=== PATIENT | female | born 1930 | race Caucasian/White ===

== ENCOUNTER → 2017-02-05 | Day surgery (SDC) | payer OTHER ==
[2017-01-30 12:36] VITALS: Ht 165.1 cm; Wt 60.9 kg
[~2017-02-05] VITALS: Ht 165.1 cm; Wt 60.9 kg
[~2017-02-05] MED LIST: 500ML BSS 0.3ML EPI 1:1000PF IRRIG ONE; ACETAMINOPHEN 325 MG TAB PO PRN; AMVISC PLUS 0.8ML SYRINGE INT OCU ONE; ASPI325T39 PO; ATOR-22 PO; ATROPINE SULFATE 0.1 MG/ML 5ML SYR IV PRN; ATV/1 PO; AcetaZOLAMIDE 250 MG TAB PO SCH; BETAXOLOL HCL 0.25% OP SUSP PER DROP CHARGE OPR SCH; BRIMONIDINE TART 0.2% OP SOLN PER DROP CHARGE ONE; BROM0.07 OPR; BSS FLUSH ONE; BUPR100T8 PO; CALC500C70 PO; CHOL100010 PO; DICY10CA55 PO; DOCU-94 PO; ENDOCOAT 0.85ML SYRINGE INT OCU ONE; EpINEphrine INJ 1MG/ML AMP 1 MG/ML AMP ONE; FLUO20CA20 PO; HYDR-5688 PO; LACTATED RINGER'S 1000ML 500 ML IV SCH; LEVO75TA5 PO; LIDOCAINE 4% OP SOLN DROP CHARGE ONE; LIDOCAINE 4% OP SOLN DROP CHARGE OPR SCH; LIDOCAINE HCL 1% MPF 2 ML VIAL ONE; LORA1TAB13 PO; MIDAZOLAM HCL 1 MG/ML 2ML VIAL ONE; MIX: 4ML BSS 1ML EPI 1:1000 PF INSTIL ONE; MOXIFLOXACIN OPH SOLN PER DROP CHARGE ONE; OCUCOAT 1 ML SOLN IO ONE; POVIDONE-IODINE OP SOLN 30 ML BTL ONE; PRED1SUS3 OPR; PRLSR20 PO; PROPARACAINE 0.5% OP SOLN PER DROP CHARGE OPR SCH; TOBRAMYCIN/DEXAMETHASONE OPH OINT PER APPLN CHARGE ONE
--- NOTE | 2017-02-05 09:00 | History & Physical Bridge - [place] ---
H&P Re-Evaluation Bridge Note: I have examined the patient, reviewed the History & Physical and in the interval since the performance of the History & Physical I have noted the following changes of clinical significance: No changes noted
[2017-02-05] MEDS: PHENYLEPHRINE HCL 2.5% OP SOLN PER DROP CHARGE OPR SCH ×2 (09:50→09:55)
[2017-02-05] MEDS: TROPICAMIDE 1% OP SOLN PER DROP CHARGE OPR SCH ×2 (09:51→09:56)
[2017-02-05] MEDS: CYCLOPENTOLATE HCL 1% OP SOLN PER DROP CHARGE OPR SCH ×2 (09:52→09:57)
[2017-02-05] MEDS: MOXIFLOXACIN OPH SOLN PER DROP CHARGE OPR SCH ×2 (09:53→10:03)
--- NOTE | 2017-02-05 10:26 | Discharge Instructions-SurgCtr ---
Discharge Instructions Date of Service February 05, 2017. Visit Reason for Visit: Cataract Right Eye Discharge Discharge Diagnosis / Problem: lens implant right eye Discharge Goals Goal(s): Improve function Activity Recommendations Activity Limitations: resume your previous activity Lifting Limitations: no more than 10 pounds Exercise/Sports Limitations: gradually increase as tolerated May Resume Sexual Activity: when tolerated Shower/Bathe: tomorrow Driving or Machine Use: resume 1 day after discharge Anesthesia . Post Anesthesia Instructions: If you have had General Anesthesia or IV Sedation: * Do not drive today. * Resume driving when surgeon permits. * Do not make important decisions or sign legal documents today. * Call surgeon for: 1. Temperature elevations greater than 101 degrees F. 2. Uncontrollable pain. 3. Excessive bleeding. 4. Persistent nausea and vomiting. 5. Medication intolerance (nausea, vomiting or rash). * For nausea and vomiting use only clear liquids such as: tea, soda, bouillon until nausea subsides, then gradually increase diet as tolerated. * If you have any concerns or questions, call your surgeon's office. If physician is unavailable and it is an emergency, call 911 or go to the nearest emergency room. . Instructions / Follow-Up Instructions / Follow-Up ACTIVITY RECOMMENDATIONS: * Light activities. * Mild irritation and blurred vision are common for the first few days. * You may walk outside, read, watch television. * Redness around the white part of the eye is common. MEDICATIONS: Resume previous medications unless instructed otherwise by your surgeon. * Take white Diamox (Acetazolamide) tablet at 1 pm today. Start all eye drops at 1 pm today: * Eye drops (today and tomorrow): Prednisone - one drop in operative eye every 3 hours while awake Ofloxacin - one drop in operative eye every 3 hours while awake SPECIAL CARE INSTRUCTIONS: * Tape plastic shield over eye to sleep at night. Call your doctor at with any concerns or problems. FOLLOW UP VISIT: Follow-up with Dr Mccormick at [place] office as scheduled. Diet Recommendations Home Diet: no limitations Procedures Procedures Performed: cataract extraction with lens implant Pending Studies Studies pending at discharge: no Medical Emergencies . Who to Call and When: Medical Emergencies: If at any time you feel your situation is an emergency, please call 911 immediately. . Non-Emergent Contact Non-Emergency issues call your: Director Call Non-Emergent contact if: your pain is not controlled [phone] . . "Provider Documentation" section prepared by Zana Mccormick. .
--- NOTE | 2017-02-05 10:29 | [facility] Operative Report ---
Operative Report Date of Service February 05, 2017. Operative Report 1. PREOPERATIVE DIAGNOSIS: Senile cortical cataract, right eye. 2. POSTOPERATIVE DIAGNOSIS: Senile cortical cataract, right eye. 3. PROCEDURE: Phacoemulsification of right cataract with posterior chamber lens implant, type [employer], model MX60, power +23.0 diopters. ANESTHESIA: Local standby. SURGEON: Dr. Mccormick. COMPLICATIONS: None. OPERATING TIME: 10 minutes. 4. OPERATION AND FINDINGS: DESCRIPTION OF PROCEDURE: The right pupil was dilated. The anesthetic was administered using a topical technique. The right eye was prepped and draped. A speculum was placed. A clear corneal incision was formed. The chamber was filled with Amvisc Plus and Endocoat. Epinephrine solution was used. A paracentesis was placed. A capsulorrhexis was performed. The nucleus was hydrodissected. The lens was removed with phacoemulsification. Time was 4.05 seconds. The aspiration unit was used to remove the cortex. The capsule was filled with Amvisc Plus. The lens implant was folded and placed into the capsule. The incision was hydrated. The Amvisc was aspirated. The wound was secure. The chamber was deep. The pupil was round. Brimonidine, TobraDex ointment and Vigamox solution were placed. The speculum was removed. The patient was returned to the Recovery Room in stable condition. I attest to the content of the Intraoperative Record and any orders documented therein. Any exceptions are noted below. The scribe's documentation has been prepared in my presence, under my direction and personally reviewed by me in its entirety. I confirm that the note above accurately reflects all work, treatment, procedures, and medical decision making performed by me. I personally scribed for Zana Mccormick M.D. ([email or web address]) on 02/05/17 at 10:29. Electronically submitted by Ruthie Birch ([email or web address]).
[2017-02-05 10:31] VITALS: TEMP 36
[2017-02-05 10:49] VITALS: BP 104/70; PULSE 74; O2SAT 97
--- NOTE | 2017-02-05 10:54 | Anesthesia Progress Nt - [facility] ---
Anesthesia Post Op Note Date & Time February 05, 2017 at 10:55 Vital Signs Vital Signs Past 12 Hours Date Time Temp Pulse Resp B/P Pulse Ox O2 Delivery O2 Flow Rate FiO2 02/05/17 10:49 74 16 104/70 97 Room Air 02/05/17 10:31 36.0 75 20 120/77 97 Room Air 02/05/17 09:51 36.6 76 16 125/80 98 Room Air Notes Mental Status: alert / awake / arousable, participated in evaluation Pt Amnestic to Procedure: Yes Nausea / Vomiting: adequately controlled Pain: adequately controlled Airway Patency, RR, SpO2: stable & adequate BP & HR: stable & adequate Hydration State: stable & adequate Anesthetic Complications: no major complications apparent
== END | disposition home or self-care (01) ==
LOC: X.SURG 09:34
PROVIDERS: ATTEND Specialist
DX: H25.11 Age-related nuclear cataract, right eye (principal); E03.9 Hypothyroidism, unspecified; Z79.899 Other long term (current) drug therapy

== ENCOUNTER → 2017-02-26 | Day surgery (SDC) | payer OTHER ==
[2017-02-13 15:43] VITALS: Ht 165.1 cm; Wt 60.9 kg
[~2017-02-26] VITALS: Ht 165.1 cm; Wt 60.9 kg
[~2017-02-26] MED LIST changes: +BETAXOLOL HCL 0.25% OP SUSP PER DROP CHARGE OPL SCH; -BETAXOLOL HCL 0.25% OP SUSP PER DROP CHARGE OPR SCH; +EpHEDrine SULFATE INJ 50 MG/ML AMP IV PRN; +LIDOCAINE 4% OP SOLN DROP CHARGE OPL SCH; -LIDOCAINE 4% OP SOLN DROP CHARGE OPR SCH; +PROPARACAINE 0.5% OP SOLN PER DROP CHARGE OPL SCH; -PROPARACAINE 0.5% OP SOLN PER DROP CHARGE OPR SCH
[2017-02-26] MEDS: PHENYLEPHRINE HCL 2.5% OP SOLN PER DROP CHARGE OPL SCH ×2 (07:42→07:47)
[2017-02-26] MEDS: TROPICAMIDE 1% OP SOLN PER DROP CHARGE OPL SCH ×2 (07:43→07:48)
[2017-02-26] MEDS: CYCLOPENTOLATE HCL 1% OP SOLN PER DROP CHARGE OPL SCH ×2 (07:44→07:49)
[2017-02-26] MEDS: MOXIFLOXACIN OPH SOLN PER DROP CHARGE OPL SCH ×2 (07:45→07:55)
--- NOTE | 2017-02-26 08:34 | Discharge Instructions-SurgCtr ---
Discharge Instructions Date of Service Feb 26, 2017. Visit Reason for Visit: Left Cataract Discharge Discharge Diagnosis / Problem: lens implant left eye Discharge Goals Goal(s): Improve function Activity Recommendations Activity Limitations: resume your previous activity Lifting Limitations: no more than 10 pounds Exercise/Sports Limitations: gradually increase as tolerated May Resume Sexual Activity: when tolerated Shower/Bathe: tomorrow Driving or Machine Use: resume 1 day after discharge Anesthesia . Post Anesthesia Instructions: If you have had General Anesthesia or IV Sedation: * Do not drive today. * Resume driving when surgeon permits. * Do not make important decisions or sign legal documents today. * Call surgeon for: 1. Temperature elevations greater than 101 degrees F. 2. Uncontrollable pain. 3. Excessive bleeding. 4. Persistent nausea and vomiting. 5. Medication intolerance (nausea, vomiting or rash). * For nausea and vomiting use only clear liquids such as: tea, soda, bouillon until nausea subsides, then gradually increase diet as tolerated. * If you have any concerns or questions, call your surgeon's office. If physician is unavailable and it is an emergency, call 911 or go to the nearest emergency room. . Instructions / Follow-Up Instructions / Follow-Up ACTIVITY RECOMMENDATIONS: * Light activities. * Mild irritation and blurred vision are common for the first few days. * You may walk outside, read, watch television. * Redness around the white part of the eye is common. MEDICATIONS: Resume previous medications unless instructed otherwise by your surgeon. * Take white Diamox (Acetazolamide) tablet at 1 pm today. Start all eye drops at 1 pm today: * Eye drops (today and tomorrow): Prednisone - one drop in operative eye every 3 hours while awake Ofloxacin - one drop in operative eye every 3 hours while awake SPECIAL CARE INSTRUCTIONS: * Tape plastic shield over eye to sleep at night. Call your doctor at with any concerns or problems. FOLLOW UP VISIT: Follow-up with Dr Mccormick at [place] office as scheduled. Diet Recommendations Home Diet: no limitations Procedures Procedures Performed: Left Cataract Phacoemulsification With Intraocular Lens Implant Pending Studies Studies pending at discharge: no Medical Emergencies . Who to Call and When: Medical Emergencies: If at any time you feel your situation is an emergency, please call 911 immediately. . Non-Emergent Contact Non-Emergency issues call your: Napper Runner Call Non-Emergent contact if: your pain is not controlled [phone] . . "Provider Documentation" section prepared by Zana Mccormick. .
[2017-02-26 08:37] VITALS: TEMP 36.7
--- NOTE | 2017-02-26 08:37 | [facility] Operative Report ---
Operative Report Date of Service Feb 26, 2017. Operative Report 1. PREOPERATIVE DIAGNOSIS: Senile cortical cataract, left eye. 2. POSTOPERATIVE DIAGNOSIS: Senile cortical cataract, left eye. 3. PROCEDURE: Phacoemulsification of left cataract with posterior chamber lens implant, type [employer]ch [employer] Lomb, model MX60, power +23.5 diopters. ANESTHESIA: Local standby. SURGEON: Dr. Mccormick. COMPLICATIONS: None. OPERATING TIME: 10 minutes. 4. OPERATION AND FINDINGS: DESCRIPTION OF PROCEDURE: The left pupil was dilated. The anesthetic was administered using a topical technique. The left eye was prepped and draped. A speculum was placed. A clear corneal incision was formed. The chamber was filled with Amvisc Plus and Endocoat. Epinephrine solution was used. A paracentesis was placed. A capsulorrhexis was performed. The nucleus was hydrodissected. The lens was removed with phacoemulsification. Time was 4.06 seconds. The aspiration unit was used to remove the cortex. The capsule was filled with Amvisc Plus. The lens implant was folded and placed into the capsule. The incision was hydrated. The Amvisc was aspirated. The wound was secure. The chamber was deep. The pupil was round. Brimonidine, TobraDex ointment and Vigamox solution were placed. The speculum was removed. The patient was returned to the Recovery Room in stable condition. I attest to the content of the Intraoperative Record and any orders documented therein. Any exceptions are noted below. The scribe's documentation has been prepared in my presence, under my direction and personally reviewed by me in its entirety. I confirm that the note above accurately reflects all work, treatment, procedures, and medical decision making performed by me. I personally scribed for Zana Mccormick M.D. ([email or web address]) on 02/26/17 at 08:37. Electronically submitted by Ruthie Birch ([email or web address]).
[2017-02-26 09:00] VITALS: BP 99/64; PULSE 72; O2SAT 96
--- NOTE | 2017-02-26 09:03 | Anesthesia Progress Nt - [facility] ---
Anesthesia Post Op Note Date & Time Feb 26, 2017 at 09:03 Vital Signs Pain Intensity: 0 Vital Signs Past 12 Hours Date Time Temp Pulse Resp B/P (MAP) Pulse Ox O2 Delivery O2 Flow Rate FiO2 02/26/17 09:00 72 16 99/64 (76) 96 Room Air 02/26/17 08:37 36.7 70 16 102/66 (78) 97 Room Air 02/26/17 07:31 36.5 84 16 99/59 (72) 96 Room Air Notes Mental Status: alert / awake / arousable, participated in evaluation Pt Amnestic to Procedure: Yes Nausea / Vomiting: adequately controlled Pain: adequately controlled Airway Patency, RR, SpO2: stable & adequate BP & HR: stable & adequate Hydration State: stable & adequate Anesthetic Complications: no major complications apparent
== END | disposition home or self-care (01) ==
LOC: X.SURG 07:18
PROVIDERS: ATTEND Specialist
DX: H25.012 Cortical age-related cataract, left eye (principal); Z79.899 Other long term (current) drug therapy; Z79.82 Long term (current) use of aspirin

== ENCOUNTER 2018-04-28 14:37 | Emergency (ER) | payer OTHER ==
[~2018-04-28] VITALS: Ht 165.1 cm; Wt 62.8 kg
[~2018-04-28 14:37] MED LIST changes: -500ML BSS 0.3ML EPI 1:1000PF IRRIG ONE; -ACETAMINOPHEN 325 MG TAB PO PRN; -AMVISC PLUS 0.8ML SYRINGE INT OCU ONE; -ATROPINE SULFATE 0.1 MG/ML 5ML SYR IV PRN; -AcetaZOLAMIDE 250 MG TAB PO SCH; -BETAXOLOL HCL 0.25% OP SUSP PER DROP CHARGE OPL SCH; -BRIMONIDINE TART 0.2% OP SOLN PER DROP CHARGE ONE; -BSS FLUSH ONE; -ENDOCOAT 0.85ML SYRINGE INT OCU ONE; -EpHEDrine SULFATE INJ 50 MG/ML AMP IV PRN; -EpINEphrine INJ 1MG/ML AMP 1 MG/ML AMP ONE; -HYDR-5688 PO; -LACTATED RINGER'S 1000ML 500 ML IV SCH; -LIDOCAINE 4% OP SOLN DROP CHARGE ONE; -LIDOCAINE 4% OP SOLN DROP CHARGE OPL SCH; -LIDOCAINE HCL 1% MPF 2 ML VIAL ONE; -MIDAZOLAM HCL 1 MG/ML 2ML VIAL ONE; -MIX: 4ML BSS 1ML EPI 1:1000 PF INSTIL ONE; -MOXIFLOXACIN OPH SOLN PER DROP CHARGE ONE; -OCUCOAT 1 ML SOLN IO ONE; -POVIDONE-IODINE OP SOLN 30 ML BTL ONE; -PROPARACAINE 0.5% OP SOLN PER DROP CHARGE OPL SCH; -TOBRAMYCIN/DEXAMETHASONE OPH OINT PER APPLN CHARGE ONE
[2018-04-28 14:44] VITALS: TEMP 36.7; Ht 165.1 cm; Wt 62.8 kg
[2018-04-28] MEDS ORDERED: SODIUM CHLORIDE 0.9% 1000ML 1,000 ML IV STA (14:53)
[2018-04-28 15:09] LABS: BASO % 0.5 %; BASO ABS # 0.04 K/uL (0-0.2); EOS ABS # 0.25 K/uL (0-0.5); HEMATOCRIT 42.8 % (37-47); HEMOGLOBIN 13.9 g/dL (12.0-16.0); IG# 0.01 K/uL (0.00-0.02); LYMPH % 28.8 %; LYMPH ABS # 2.43 K/uL (1.2-3.4); MEAN CELL VOLUME 95.5 fL (80-100); MEAN CORPUSCULAR HGB CONC 32.5 g/dl (32-36); MEAN PLATELET VOLUME 11.4 fL (7.4-10.4); MONO % 5.1 %; MONO ABS # 0.43 K/uL (0.11-0.59); NEUT % 62.5 %; NEUT ABS # 5.29 K/uL (1.4-6.5); PLATELET COUNT 234 K/uL (130-400); RED CELL DISTRIBUTION WIDTH CV 13.3 % (11.5-14.5); RED CELL DISTRIBUTION WIDTH SD 46.1 fL (36.4-46.3); WHITE BLOOD COUNT 8.45 K/uL (4.8-10.8)
--- NOTE | 2018-04-28 15:11 | DIAGNOSTIC IMAGING REPORT ---
SINGLE VIEW CHEST CLINICAL HISTORY: Weakness. Change in mental status. FINDINGS: An AP, portable, upright chest radiograph is compared to study dated 03/14/2016. Correlation is a with chest CT dated 05/19/2015. The examination is degraded by portable technique and patient rotation. The heart is enlarged. The pulmonary vasculature is noncongested. Chronic interstitial thickening is unchanged. No airspace consolidation or large pleural effusion is identified. No pneumothorax is seen. The skeletal structures are osteopenic. There is advanced degenerative change and scoliosis noted in the thoracic spine. Fusion hardware is seen in the lower cervical spine. Fusion hardware is also seen at the thoracolumbar junction. Calcific tendinopathy is seen in the right shoulder. IMPRESSION: Cardiomegaly with no acute cardiopulmonary abnormality. Electronically signed by: Tera Spain M.D. 04/28/2018 3:09 PM Dictated Date/Time: 04/28/2018 3:08 PM
[2018-04-28 15:24] LABS: PTT PATIENT 25.2 SECONDS (21.0-31.0)
[2018-04-28 15:36] LABS: ALBUMIN 3.4 gm/dl (3.4-5.0); ALKALINE PHOSPHATASE 72 U/L (45-117); ALT/SGPT 18 U/L (12-78); AST/SGOT 22 U/L (15-37); BLOOD UREA NITROGEN 19 mg/dl (7-18); CALCIUM 8.7 mg/dl (8.5-10.1); CARBON DIOXIDE 23 mmol/L (21-32); CKMB 1.7 ng/ml (0.5-3.6); CREATININE 1.28 mg/dl (0.60-1.20); GLUCOSE 109 mg/dl (70-99); LIPASE 283 U/L (73-393); POTASSIUM 4.3 mmol/L (3.5-5.1); SODIUM 137 mmol/L (136-145); TOTAL PROTEIN 7.4 gm/dl (6.4-8.2)
[2018-04-28] MEDS ORDERED: TRMCR130WC TOP (15:38)
[2018-04-28] MEDS ORDERED: CHOL100027 PO (15:38)
[2018-04-28] MEDS ORDERED: ONDA4TAB46 PO (15:38)
[2018-04-28] MEDS ORDERED: DOCU-94 PO (15:38)
[2018-04-28] MEDS ORDERED: ATV/1 PO (15:39)
--- NOTE | 2018-04-28 15:44 | DIAGNOSTIC IMAGING REPORT ---
CT SCAN OF THE BRAIN WITHOUT IV CONTRAST CLINICAL HISTORY: Change in mental status. Weakness. COMPARISON STUDY: CT of the brain dated 06/20/2008. TECHNIQUE: Unenhanced axial CT scan of the brain is performed from the vertex to the skull base. A dose lowering technique was utilized adhering to the principles of ALARA. The examination is degraded by motion artifact. CT DOSE: 638.56 mGycm FINDINGS: Brain parenchyma: There are age-related involutional changes noting mild to moderate subcortical and periventricular microangiopathic change. There is no hemorrhage, mass effect, or evidence of acute territorial ischemia by CT criteria. Deluca-white matter is preserved. No extra-axial fluid collection is seen. Ventricles, sulci, cisterns: Prominent secondary to involutional change. Intracranial vasculature: There is atherosclerotic calcification of the cavernous carotid and vertebral arteries. Calvarium: The skeletal structures are osteopenic. There is no depressed calvarial fracture. Soft tissues: There is a left posterior frontal scalp hematoma. Sinuses and mastoids: The visualized paranasal sinuses are clear. The mastoid air cells are well pneumatized. Orbits: The bony orbits are grossly intact. There are bilateral ocular lens implants. IMPRESSION: 1. There is no hemorrhage, mass effect, or evidence of acute territorial ischemia by CT criteria. 2. Left posterior parietal scalp hematoma. No depressed calvarial fracture is seen Electronically signed by: Tera Spain M.D. 04/28/2018 3:43 PM Dictated Date/Time: 04/28/2018 3:40 PM
--- NOTE | 2018-04-28 15:52 | DIAGNOSTIC IMAGING REPORT ---
CT SCAN OF THE CERVICAL SPINE CLINICAL HISTORY: Fall. COMPARISON STUDY: MRI of the cervical spine dated 12/25/2005. TECHNIQUE: CT scan of the cervical spine is performed from the skull base to the upper thoracic spine. Images are reviewed in the axial, sagittal, and coronal planes. IV contrast was not administered for this examination. A dose lowering technique was utilized adhering to the principles of ALARA. CT DOSE: 390.11 mGycm FINDINGS: Skeletal structures: The skeletal structures are osteopenic. There is no evidence of fracture or subluxation involving the cervical spine. Vertebral body height and alignment are maintained. There are postoperative changes from anterior fusion seen from C3 -C6 with near complete bony incorporation at these levels. There is straightening of the cervical lordosis. The odontoid process and lateral masses are intact. The atlantoaxial articulation is preserved noting productive degenerative change and calcification of the posterior longitudinal ligament. The spinous processes appear intact. There is moderate multilevel spondylosis. Uncovertebral and facet arthropathy contribute to neural foraminal stenosis at most levels. Intervertebral discs: There is been discectomy at C3-C4, C4-C5, C5-C6. Moderate disc space narrowing is seen at C6-C7. Central canal: Posterior disc osteophyte complexes at C3-C4 and C6-C7 may contribute to mild acquired compromise of the central canal. Soft tissues: The prevertebral and paraspinous soft tissues are within normal limits. The thyroid gland is atrophic. Calvarium: The visualized calvarium at the skull base appears intact. Brain parenchyma: Partially visualized brain parenchyma the skull base is within normal limits noting age-related involutional change. Sinuses and mastoids: The visualized paranasal sinuses are clear. There is a trace right mastoid effusion. The left mastoid air cells are well pneumatized. Lung apices: Clear as visualized. IMPRESSION: 1. There is no evidence of fracture or subluxation involving the cervical spine. 2. Osteopenia with spondylotic and postoperative change as above. Electronically signed by: Tera Spain M.D. 04/28/2018 3:50 PM Dictated Date/Time: 04/28/2018 3:43 PM
--- NOTE | 2018-04-28 15:59 | DIAGNOSTIC IMAGING REPORT ---
CT SCAN OF THE ABDOMEN AND PELVIS WITHOUT IV CONTRAST CLINICAL HISTORY: Generalized abdominal pain. Fall. COMPARISON STUDY: Abdominal CT dated 10/13/2012. TECHNIQUE: CT scan of the abdomen and pelvis is performed from the lung bases to the proximal femora. Images are reviewed in the axial, sagittal, and coronal planes. IV contrast was not administered for this examination. Note that the examination was performed and significant suboptimal fashion without oral and IV contrast. The examination is also degraded by streak artifact from extensive thoracolumbar spinal fusion hardware. A dose lowering technique was utilized adhering to the principles of ALARA. CT DOSE: 396.15 mGycm FINDINGS: Lung bases: The heart is normal in size and without pericardial effusion. There is a small fat-containing Bochdalek hernia at the right lung base. Mild bibasilar scarring/atelectasis is observed. No airspace consolidation or pleural effusion is seen. There is a tiny hiatal hernia. Liver: The unenhanced liver is normal in size, contour, and attenuation. There is mild central intrahepatic biliary ductal dilatation. Gallbladder: Surgically absent noting clips in the gallbladder fossa. Spleen: Normal in size and attenuation. Pancreas: The unenhanced pancreas is atrophic and grossly unremarkable. Adrenal glands: Unremarkable. Kidneys: The unenhanced kidneys are atrophic and without hydronephrosis. There are no renal calculi identified. There is no evidence of contour deforming renal mass lesion. Abdominal vasculature: The abdominal aorta is normal in course and caliber noting moderate to advanced atherosclerotic calcification. Bowel: No bowel obstruction is seen. The appendix is not identified Peritoneum: There is no intraperitoneal free air or abdominal ascites. There is a small fat-containing umbilical hernia. Lymphadenopathy: None. Pelvic viscera: The bladder is decompressed and grossly unremarkable. The uterus is surgically absent. No adnexal lesion is seen. Skeletal structures: The skeletal structures are osteopenic. Thoracolumbar spinal fusion hardware is seen from T11 -S1. There is lucency around the right ventricular screw at S1 suggesting loosening. No lytic or blastic lesions are seen. IMPRESSION: 1. Suboptimal examination without oral and IV contrast. 2. There is no evidence of solid organ injury in the abdomen or pelvis. 3. There are no acute infectious or inflammatory findings in the abdomen or pelvis. 4. There is lucency around the right interpedicular screw at S1 suggesting loosening. 5. Additional findings as above. Electronically signed by: Tera Spain M.D. 04/28/2018 3:57 PM Dictated Date/Time: 04/28/2018 3:50 PM
--- NOTE | 2018-04-28 16:25 | EMERGENCY ROOM VISIT NOTE ---
History Report prepared by Yoselin: Jackelin Cage Under the Supervision of: Dr. Sherif Torres D.O. First contact with patient: 14:31 Chief Complaint: SYNCOPE Stated Complaint: SYNCOPE History of Present Illness The patient is an 87 year old female who presents to the Emergency Room with complaints of a sudden syncopal episode occurring shortly prior to arrival. Per nursing staff, the patient was at the hearing aid center, had a syncopal episode , and now has a laceration on the back of her head. Per nursing staff the patient has had dizziness and abdominal pain over the last several days. The patient states that she has been eating and drinking okay. She describes her abdominal pain as being sharp and states that she has not been doing anything unusual. She states that her abdominal pain also radiates into her back. She reports having 2 normal bowel movements today. She reports having chronic neck pain. The patient states that she lives by herself. The patient reports a history of a cholecystectomy and 2 C-sections. Source of History: patient, nursing staff Onset: shortly prior to arrival Position: other (generalized) Quality: other (syncope) Timing: other (sudden) Associated Symptoms: + abdominal pain, + back pain, + weakness (dizziness) Review of Systems See HPI for pertinent positives & negatives. A total of 10 systems reviewed and were otherwise negative. Past Medical & Surgical Medical Problems: (1) Anxiety (2) CVA (cerebral vascular accident) (3) Depression (4) Dyslipidemia (5) Esophageal dysmotility (6) GERD (gastroesophageal reflux disease) (7) Hypothyroidism (8) Osteoarthritis (9) RLS (restless legs syndrome) Surgical Problems: (1) H/O cervical spine surgery (2) H/O: hysterectomy (3) History of appendectomy (4) History of lumbar surgery (5) S/P BSO (bilateral salpingo-oophorectomy) (6) S/P cholecystectomy (7) S/P tonsillectomy and adenoidectomy Family History Cancer Heart disease Social History Smoking Status: Never Smoker Alcohol Use: none Drug Use: none Marital Status: Housing Status: unknown Occupation Status: retired Current/Historical Medications Scheduled Aspirin (Aspirin Ec), 325 MG PO QAM Atorvastatin (Lipitor), 20 MG PO QAM Calcium/Vitamin D (Os-Roderick 500 Plus D), 1 TAB PO QAM Cholecalciferol (Vitamin D 1000 Unit), 1,000 INTER.UNIT PO DAILY Fluoxetine Hcl (Pmdd) (Fluoxetine), 20 MG PO QAM Levothyroxine Sodium (Levothyroxine Sodium), 75 MCG PO QAM Lorazepam (Ativan), 1.5 MG PO HS Scheduled PRN Dicyclomine Hcl (Bentyl), 10 MG PO QID PRN for Pain Docusate Sodium (Colace), 1 CAP PO BID PRN for Constipation Hydrocodone/Acetaminophen 5MG/325MG ([place] 5MG/325MG), 1 TABLET PO Q4H PRN for Pain Lorazepam (Ativan), 1 MG PO DAILY PRN for Anxiety Omeprazole (Prilosec), 20 MG PO QAM PRN for ACID REFLUX Ondansetron Hcl (Zofran), 4 MG PO Q8 PRN for Nausea Triamcinolone Acet (Aristocort 0.1%), 1 APPLN TOP BID PRN for BREAKOUTS Allergies Coded Allergies: Citalopram (Verified Allergy, Unknown, RASH, 02/26/17) Escitalopram (Verified Allergy, Unknown, RASH, 02/26/17) Alendronate (Verified Adverse Reaction, Severe, BACK PAIN, 04/28/18) Physical Exam Vital Signs Date Time Temp Pulse Resp B/P (MAP) Pulse Ox O2 Delivery O2 Flow Rate FiO2 04/28/18 16:32 79 18 116/63 95 Room Air 04/28/18 15:00 81 20 123/74 94 Room Air 77 130/72 78 121/68 04/28/18 14:49 74 04/28/18 14:44 36.7 78 20 140/82 98 Room Air Physical Exam CONSTITUTIONAL/VITAL SIGNS: Reviewed / noted above. GENERAL: Non-toxic in appearance. INTEGUMENTARY: Warm, dry, and [place]. HEAD: Normocephalic. 1-2 cm well proximated laceration to the left upper occipital area. EYES: without scleral icterus or trauma. ENT/OROPHARYNX: clear and moist. LYMPHADENOPATHY/NECK: Is supple without lymphadenopathy or meningismus. Mild tenderness to the cervical spine. RESPIRATORY: Lungs clear and equal. CARDIOVASCULAR: Regular rate and rhythm. GI/ABDOMEN: Soft. Mild diffuse abdominal tenderness. No organomegaly or pulsatile mass. No rebound or guarding. Normal bowel sounds. EXTREMITIES: Warm and well perfused. BACK: No CVA tenderness. NEUROLOGICAL: Intact without focal deficits. PSYCHIATRIC: normal affect. MUSCULOSKELETAL: Normally developed with good muscle tone. Medical Decision & Procedures ER Provider Diagnostic Interpretation: Radiology results as stated below per my review and radiologist interpretation: SINGLE VIEW CHEST CLINICAL HISTORY: Weakness. Change in mental status. FINDINGS: An AP, portable, upright chest radiograph is compared to study dated 03/14/2016. Correlation is a with chest CT dated 05/19/2015. The examination is degraded by portable technique and patient rotation. The heart is enlarged. The pulmonary vasculature is noncongested. Chronic interstitial thickening is unchanged. No airspace consolidation or large pleural effusion is identified. No pneumothorax is seen. The skeletal structures are osteopenic. There is advanced degenerative change and scoliosis noted in the thoracic spine. Fusion hardware is seen in the lower cervical spine. Fusion hardware is also seen at the thoracolumbar junction. Calcific tendinopathy is seen in the right shoulder. IMPRESSION: Cardiomegaly with no acute cardiopulmonary abnormality. Electronically signed by: Tera Spain M.D. 04/28/2018 3:09 PM Dictated Date/Time: 04/28/2018 3:[address] SCAN OF THE ABDOMEN AND PELVIS WITHOUT IV CONTRAST CLINICAL HISTORY: Generalized abdominal pain. Fall. COMPARISON STUDY: Abdominal CT dated 10/13/2012. TECHNIQUE: CT scan of the abdomen and pelvis is performed from the lung bases to the proximal femora. Images are reviewed in the axial, sagittal, and coronal planes. IV contrast was not administered for this examination. Note that the examination was performed and significant suboptimal fashion without oral and IV contrast. The examination is also degraded by streak artifact from extensive thoracolumbar spinal fusion hardware. A dose lowering technique was utilized adhering to the principles of ALARA. CT DOSE: 396.15 mGycm FINDINGS: Lung bases: The heart is normal in size and without pericardial effusion. There is a small fat-containing Bochdalek hernia at the right lung base. Mild bibasilar scarring/atelectasis is observed. No airspace consolidation or pleural effusion is seen. There is a tiny hiatal hernia. Liver: The unenhanced liver is normal in size, contour, and attenuation. There is mild central intrahepatic biliary ductal dilatation. Gallbladder: Surgically absent noting clips in the gallbladder fossa. Spleen: Normal in size and attenuation. Pancreas: The unenhanced pancreas is atrophic and grossly unremarkable. Adrenal glands: Unremarkable. Kidneys: The unenhanced kidneys are atrophic and without hydronephrosis. There are no renal calculi identified. There is no evidence of contour deforming renal mass lesion. Abdominal vasculature: The abdominal aorta is normal in course and caliber noting moderate to advanced atherosclerotic calcification. Bowel: No bowel obstruction is seen. The appendix is not identified Peritoneum: There is no intraperitoneal free air or abdominal ascites. There is a small fat-containing umbilical hernia. Lymphadenopathy: None. Pelvic viscera: The bladder is decompressed and grossly unremarkable. The uterus is surgically absent. No adnexal lesion is seen. Skeletal structures: The skeletal structures are osteopenic. Thoracolumbar spinal fusion hardware is seen from T11 -S1. There is lucency around the right ventricular screw at S1 suggesting loosening. No lytic or blastic lesions are seen. IMPRESSION: 1. Suboptimal examination without oral and IV contrast. 2. There is no evidence of solid organ injury in the abdomen or pelvis. 3. There are no acute infectious or inflammatory findings in the abdomen or pelvis. 4. There is lucency around the right interpedicular screw at S1 suggesting loosening. 5. Additional findings as above. Electronically signed by: Tera Spain M.D. 04/28/2018 3:57 PM Dictated Date/Time: 04/28/2018 3:[address] SCAN OF THE CERVICAL SPINE CLINICAL HISTORY: Fall. COMPARISON STUDY: MRI of the cervical spine dated 12/25/2005. TECHNIQUE: CT scan of the cervical spine is performed from the skull base to the upper thoracic spine. Images are reviewed in the axial, sagittal, and coronal planes. IV contrast was not administered for this examination. A dose lowering technique was utilized adhering to the principles of ALARA. CT DOSE: 390.11 mGycm FINDINGS: Skeletal structures: The skeletal structures are osteopenic. There is no evidence of fracture or subluxation involving the cervical spine. Vertebral body height and alignment are maintained. There are postoperative changes from anterior fusion seen from C3 -C6 with near complete bony incorporation at these levels. There is straightening of the cervical lordosis. The odontoid process and lateral masses are intact. The atlantoaxial articulation is preserved noting productive degenerative change and calcification of the posterior longitudinal ligament. The spinous processes appear intact. There is moderate multilevel spondylosis. Uncovertebral and facet arthropathy contribute to neural foraminal stenosis at most levels. Intervertebral discs: There is been discectomy at C3-C4, C4-C5, C5-C6. Moderate disc space narrowing is seen at C6-C7. Central canal: Posterior disc osteophyte complexes at C3-C4 and C6-C7 may contribute to mild acquired compromise of the central canal. Soft tissues: The prevertebral and paraspinous soft tissues are within normal limits. The thyroid gland is atrophic. Calvarium: The visualized calvarium at the skull base appears intact. Brain parenchyma: Partially visualized brain parenchyma the skull base is within normal limits noting age-related involutional change. Sinuses and mastoids: The visualized paranasal sinuses are clear. There is a trace right mastoid effusion. The left mastoid air cells are well pneumatized. Lung apices: Clear as visualized. IMPRESSION: 1. There is no evidence of fracture or subluxation involving the cervical spine. 2. Osteopenia with spondylotic and postoperative change as above. Electronically signed by: Tera Spain M.D. 04/28/2018 3:50 PM Dictated Date/Time: 04/28/2018 3:[address] SCAN OF THE BRAIN WITHOUT IV CONTRAST CLINICAL HISTORY: Change in mental status. Weakness. COMPARISON STUDY: CT of the brain dated 06/20/2008. TECHNIQUE: Unenhanced axial CT scan of the brain is performed from the vertex to the skull base. A dose lowering technique was utilized adhering to the principles of ALARA. The examination is degraded by motion artifact. CT DOSE: 638.56 mGycm FINDINGS: Brain parenchyma: There are age-related involutional changes noting mild to moderate subcortical and periventricular microangiopathic change. There is no hemorrhage, mass effect, or evidence of acute territorial ischemia by CT criteria. [place]-white matter is preserved. No extra-axial fluid collection is seen. Ventricles, sulci, cisterns: Prominent secondary to involutional change. Intracranial vasculature: There is atherosclerotic calcification of the cavernous carotid and vertebral arteries. Calvarium: The skeletal structures are osteopenic. There is no depressed calvarial fracture. Soft tissues: There is a left posterior frontal scalp hematoma. Sinuses and mastoids: The visualized paranasal sinuses are clear. The mastoid air cells are well pneumatized. Orbits: The bony orbits are grossly intact. There are bilateral ocular lens implants. IMPRESSION: 1. There is no hemorrhage, mass effect, or evidence of acute territorial ischemia by CT criteria. 2. Left posterior parietal scalp hematoma. No depressed calvarial fracture is seen Electronically signed by: Tera Spain M.D. 04/28/2018 3:43 PM Dictated Date/Time: 04/28/2018 3:40 PM Laboratory Results 04/28/18 14:18 Red Blood Count 4.48, Mean Corpuscular Volume 95.5, Mean Corpuscular Hemoglobin 31.0, Mean Corpuscular Hemoglobin Concent 32.5, Mean Platelet Volume 11.4, Neutrophils (%) (Auto) 62.5, Lymphocytes (%) (Auto) 28.8, Monocytes (%) (Auto) 5.1, Eosinophils (%) (Auto) 3.0, Basophils (%) (Auto) 0.5, Neutrophils # (Auto) 5.29, Lymphocytes # (Auto) 2.43, Monocytes # (Auto) 0.43, Eosinophils # (Auto) 0.25, Basophils # (Auto) 0.04 04/28/18 14:18 Test 04/28/18 14:18 04/28/18 14:50 White Blood Count 8.45 K/uL (4.8-10.8) Red Blood Count 4.48 M/uL (4.2-5.4) Hemoglobin 13.9 g/dL (12.0-16.0) Hematocrit 42.8 % (37-47) Mean Corpuscular Volume 95.5 fL (80-100) Mean Corpuscular Hemoglobin 31.0 pg (25-34) Mean Corpuscular Hemoglobin Concent 32.5 g/dl (32-36) Platelet Count 234 K/uL (130-400) Mean Platelet Volume 11.4 fL (7.4-10.4) Neutrophils (%) (Auto) 62.5 % Lymphocytes (%) (Auto) 28.8 % Monocytes (%) (Auto) 5.1 % Eosinophils (%) (Auto) 3.0 % Basophils (%) (Auto) 0.5 % Neutrophils # (Auto) 5.29 K/uL (1.4-6.5) Lymphocytes # (Auto) 2.43 K/uL (1.2-3.4) Monocytes # (Auto) 0.43 K/uL (0.11-0.59) Eosinophils # (Auto) 0.25 K/uL (0-0.5) Basophils # (Auto) 0.04 K/uL (0-0.2) RDW Standard Deviation 46.1 fL (36.4-46.3) RDW Coefficient of Variation 13.3 % (11.5-14.5) Immature Granulocyte % (Auto) 0.1 % Immature Granulocyte # (Auto) 0.01 K/uL (0.00-0.02) Prothrombin Time 10.7 SECONDS (9.0-12.0) Prothromb Time International Ratio 1.0 (0.9-1.1) Activated Partial Thromboplast Time 25.2 SECONDS (21.0-31.0) Partial Thromboplastin Ratio 1.0 Anion Gap 8.0 mmol/L (3-11) Est Creatinine Clear Calc Drug Dose 28.4 ml/min Estimated GFR () 43.8 Estimated GFR (Non- 37.8 BUN/Creatinine Ratio 14.6 (10-20) Calcium Level 8.7 mg/dl (8.5-10.1) Magnesium Level 2.2 mg/dl (1.8-2.4) Total Bilirubin 0.3 mg/dl (0.2-1) Direct Bilirubin < 0.1 mg/dl (0-0.2) Aspartate Amino Transf (AST/SGOT) 22 U/L (15-37) Alanine Aminotransferase (ALT/SGPT) 18 U/L (12-78) Alkaline Phosphatase 72 U/L (45-117) Total Creatine Kinase 134 U/L (26-192) Creatine Kinase MB 1.7 ng/ml (0.5-3.6) Creatine Kinase MB Ratio 1.3 (0-3.0) Troponin I < 0.015 ng/ml (0-0.045) Total Protein 7.4 gm/dl (6.4-8.2) Albumin 3.4 gm/dl (3.4-5.0) Lipase 283 U/L (73-393) Thyroid Stimulating Hormone (TSH) 3.360 uIu/ml (0.300-4.500) Urine Color DK YELLOW Urine Appearance CLEAR (CLEAR) Urine pH 5.0 (4.5-7.5) Urine Specific [place] 1.032 (1.000-1.030) Urine Protein TRACE (NEG) Urine Glucose (UA) NEG (NEG) Urine Ketones TRACE (NEG) Urine Occult Blood NEG (NEG) Urine Nitrite NEG (NEG) Urine Bilirubin NEG (NEG) Urine Urobilinogen NEG (NEG) Urine Leukocyte Esterase TRACE (NEG) Urine WBC (Auto) 1-5 /hpf (0-5) Urine RBC (Auto) 0-4 /hpf (0-4) Urine Hyaline Casts (Auto) 10-30 /lpf (0-5) Urine Epithelial Cells (Auto) >30 /lpf (0-5) Urine Bacteria (Auto) NEG (NEG) Urine Pathogenic Casts /lpf (0) Laboratory results as stated above per my review. Medications Administered Medications (Trade) Dose Ordered Sig/Daya Route Start Time Stop Time Status Last Admin Dose Admin Sodium Chloride 1,000 ml @ 250 mls/hr Q4H STAT IV 04/28/18 14:53 04/28/18 16:58 DC 04/28/18 15:40 250 MLS/HR ECG Per My Interpretation Indication: syncope Rate (beats per minute): 75 Rhythm: sinus rhythm Findings: no ectopy, other (no ST elevation ) ED Course 1445: Previous medical records were reviewed. The patient was evaluated in room C3. A complete history and physical examination was performed. 1453: Ordered Sodium Chloride 1000 ml @ 250 mls/hr IV. 1610: The patient's orthostatic vital signs were negative. 1626: On reevaluation, the patient is resting. I discussed the results and findings with the patient. She verbalized agreement of the treatment plan. She was discharged home. Medical Decision Differential includes close head injury, intracranial bleed, facial trauma, cervical spine trauma, chest and thoracic trauma, abdominal and intra-abdominal trauma, spine neurologic trauma, extremity trauma, acute cardiac dysrhythmia, microinfarction, CVA, TIA, dehydration, anemia, electrolyte disturbance, seizure , trauma, intracranial bleeding, acute vascular catastrophe, thoracic aortic dissection, PE, abdominal aortic aneurysm rupture. This is a 87-year-old female who presents to the ED after a syncope/fall. The patient was at a hearing aid center when she reportedly passed out and fell. No one came in with the patient and the patient does not recall what happened. She states that she was feeling a little dizzy. She struck the back of her head and was transported here by EMS. Some of the history was obtained by the nurse from EMS. The patient does report that she has been having some abdominal pain on Friday and Friday. She did not have it yesterday and today. The patient does report a little back pain that she had prior to the fall. She has been eating and drinking okay. She has no other specific complaints at this time. Initial blood pressure was elevated slightly. Orthostatic vital signs were negative. The patient's exam reveals a 1-2 cm well approximated laceration to the back upper portion of the head. There is currently no active bleeding. There is no contamination. And there is no need for repair. The patient does have a little neck tenderness on palpation. She also has some abdominal tenderness on palpation. She is otherwise neurologically intact. She is in no distress. An EKG shows a sinus rhythm at a rate of 75 without ischemic changes or ectopy. A CBC was normal. Chemistry panel was unremarkable with exception of a BUN of 9 team. Troponin was negative and a TSH was normal. Urine did not show infection. There were trace ketones. Abdominal CT did not reveal any acute abnormality. CT scan of the brain and cervical spine also did not show acute traumatic injury. A chest x- ray was negative for acute disease. After talking with the patient about the results. She desires to go home. She does not want to stay for observation. She was given an ambulatory trial by the nurse here. She did not have any difficulty here with ambulation. She will be discharged, per her wishes. Head Trauma GCS Score: 15 Medication Reconcilliation Current Medication List: was personally reviewed by me Blood Pressure Screening Patient's blood pressure: Elevated blood pressure Blood pressure disposition: Elevated BP felt to be situational Impression Primary Impression: Syncope Additional Impressions: Head injury Abdominal pain Dehydration Scribe Attestation The scribe's documentation has been prepared under my direction and personally reviewed by me in its entirety. I confirm that the note above accurately reflects all work, treatment, procedures, and medical decision making performed by me. Departure Information Dispostion Home / Self-Care Referrals Cayden Leal M.D. (PCP) Forms HOME CARE DOCUMENTATION FORM, IMPORTANT VISIT INFORMATION Patient Instructions My [facility] Additional Instructions Increased daily fluid intake. Follow-up with your doctor for further care and evaluation in 1-2 days. Return to the emergency department for worsening or new symptoms or any concerns. You have been examined and treated today on an emergency basis only. This is not a substitute for, or an effort to provide, complete comprehensive medical care. It is impossible to recognize and treat all injuries or illnesses in a single emergency department visit. It is therefore important that you follow up closely with your doctor. Call as soon as possible for an appointment. Problem Qualifiers
[2018-04-28 16:32] VITALS: BP 116/63; PULSE 79; O2SAT 95
[2018-04-28] MEDS ORDERED: HYDR-5688 PO (18:05)
== END 2018-04-28 16:45 | disposition home or self-care (01) ==
LOC: EDBD 14:37 → C.EDC 14:38
DX: R55 Syncope and collapse (principal); S09.90XA Unspecified injury of head, initial encounter; X58.XXXA Exposure to other specified factors, initial encounter; E86.0 Dehydration; E03.9 Hypothyroidism, unspecified; Z79.899 Other long term (current) drug therapy; E78.5 Hyperlipidemia, unspecified; F41.9 Anxiety disorder, unspecified; Z79.82 Long term (current) use of aspirin; G25.81 Restless legs syndrome; R10.9 Unspecified abdominal pain